=== PATIENT | male | born 1945 | race Caucasian/White ===

== ENCOUNTER 2018-02-28 21:37 | Emergency (ER) | payer MEDICARE, OTHER ==
--- NOTE | 2018-02-28 23:24 | ED Physician Documentation ---
PD HPI HEENT - Stated complaint Stated Complaint: SWOLLEN UVULA/SENT BY DOC - Chief complaint Chief Complaint: Heent - History obtained from History obtained from: Patient - History of Present Illness Timing - onset: How many days ago (2) Timing - duration: Days Timing - details: Gradual onset Pain level now: 0 Location: Throat Associated symptoms: No: Fever, Congestion, Rhinorrhea, Trismus, Unable to swallow, Swollen nodes, Facial swelling, Headache, Cough Similar symptoms before: Has not had sx before Recently seen: Not recently seen - Additional information Additional information: c/o 2 days of gradual onset, gradually progressive painless uvular swelling. no new medications, no h/o similar sx Review of Systems Constitutional: reports: Reviewed and negative Ears: reports: Reviewed and negative Throat: reports: Other (uvular swelling). denies: Dental pain / toothache, Oral lesions / sores, Sore throat, Swollen tonsils, Swallowed foreign body, Reviewed and negative Respiratory: denies: Dyspnea PD PAST MEDICAL HISTORY - Past Medical History Past Medical History: Yes Cardiovascular: Hypertension, High cholesterol Respiratory: Asthma Endocrine/Autoimmune: None GI: GERD, Diverticulitis : Benign prostate hypertrophy, Nocturia, Frequency HEENT: Chronic sinusitis Psych: Depression Musculoskeletal: Osteoarthritis Derm: Other - Past Surgical History Past Surgical History: Yes General: Colonoscopy, Other Ortho: Other Cardiovascular: Coronary stent HEENT: Other - Present Medications Home Medications: Ambulatory Orders Medication Instructions Recorded Confirmed Cholecalciferol (Vitamin D3) 1,000 unit PO DAILY 01/09/14 02/28/18 [Vitamin D3] Magnesium Citrate 500 mg PO DAILY 01/09/14 05/20/14 Niacinamide 500 mg PO BID 01/09/14 02/28/18 Clopidogrel [Plavix] 75 mg ORAL DAILY 05/20/14 02/28/18 Losartan [Cozaar] 50 mg ORAL DAILY 05/20/14 02/28/18 Pantoprazole [Protonix] 40 mg ORAL DAILY 05/20/14 02/28/18 Cetirizine HCl 10 mg PO 02/28/18 Pantothenic Acid 1,000 mg ORAL DAILY 02/28/18 predniSONE [Prednisone] 40 mg PO DAILY 4 Days #8 tablet 02/28/18 - Allergies Allergies/Adverse Reactions: Allergies Allergy/AdvReac Type Severity Reaction Status Date / Time lisinopril Allergy Severe Anaphylaxis Verified 02/28/18 21:48 Penicillins Allergy Severe Anaphylaxis Verified 02/28/18 21:48 Hpseltc-Tos-Kkc Reductase Allergy Severe Nerve Verified 02/28/18 21:48 Inhibitor problems to hands and feet Fish Containing Products Allergy Unknown Verified 02/28/18 21:48 monosodium glutamate Allergy Unknown Verified 02/28/18 21:48 Pork/Porcine Containing Allergy Unknown Verified 02/28/18 21:48 Products - Social History Does the pt smoke?: No Smoking Status: Never smoker Does the pt drink ETOH?: No Does the pt have substance abuse?: No - Immunizations Immunizations are current?: No Immunizations: TDAP >10years/unknown - POLST Patient has POLST: No PD ED PE NORMAL - Vitals Vital signs reviewed: Yes - General General: Alert and oriented X 3, No acute distress, Well developed/nourished - HEENT HEENT: Moist mucous membranes PD ED PE EXPANDED - HEENT HEENT: Other (uvular edema without erythema) Results - Vitals Vitals: Oxygen O2 Source Room air PD MEDICAL DECISION MAKING - ED course Complexity details: considered differential, d/w patient Departure - Departure Disposition: 01 Home, Self Care Clinical Impression: Uvular edema Condition: Good Instructions: ED Uvulitis Follow-Up: Ortega Jolly MD [Primary Care Provider] - (Call in the morning to arrange for next available appointment; they might refer you to a specialist (ENT)) Prescriptions: predniSONE [Prednisone] 40 mg PO DAILY 4 Days #8 tablet Discharge Date/Time: 02/28/18 23:50
[2018-02-28] MEDS ORDERED: DEXAMETHASONE 10 MG/ML VIAL PO STA (23:44)
[2018-02-28 23:50] VITALS: BP 158/94
== END 2018-02-28 23:50 | disposition home or self-care (01) ==
LOC: ED 21:37
DX: R60.1 Generalized edema (principal); I10 Essential (primary) hypertension
CPT/HCPCS: 99283

== ENCOUNTER 2018-06-07 08:00 | Outpatient (CLI) | payer MEDICARE, OTHER | END 2018-06-07 23:59 | disposition home or self-care (01) | LOC: LAB.WCP 08:00 | PROVIDERS: ATTEND Family Medicine | DX: R41.3 Other amnesia (principal) | CPT/HCPCS: 36415; 82607 ==

== ENCOUNTER 2018-06-08 15:49 | Outpatient (CLI) | payer MEDICARE, OTHER ==
[2018-06-08 18:38] LABS: BASOPHILS % (AUTO) 0.3 %; EOSINOPHILS # (AUTO) 0.3 10^3/uL (0.0-0.7); HGB - HEMOGLOBIN 14.2 g/dL (14.0-18.0); LYMPHOCYTES % (AUTO) 32.4 %; MEAN CORPUSCULAR HEMOGLOBIN 30.2 pg (27.0-31.0); MEAN CORPUSCULAR VOLUME 91.6 fL (80.0-94.0); MEAN PLATELET VOLUME 9.7 fL (7.4-11.4); MONOCYTES # (AUTO) 0.5 10^3/uL (0.0-1.0); MONOCYTES % (AUTO) 8.1 %; NEUTROPHILS # (AUTO) 3.4 10^3/uL (1.5-6.6); NEUTROPHILS % (AUTO) 54.2 %; PLT - PLATELET COUNT 190 10^3/uL (130-450); RED BLOOD COUNT 4.69 10^6/uL (4.70-6.10); RED CELL DISTRIBUTION WIDTH 13.7 % (12.0-15.0); WHITE BLOOD COUNT 6.3 x10^3/uL (4.8-10.8)
[2018-06-08 20:35] LABS: ALBUMIN 4.3 g/dL (3.2-5.5); ALBUMIN/GLOBULIN RATIO 1.2 (1.0-2.2); ALKALINE PHOSPHATASE 74 IU/L (42-121); ALT ALANINE AMINOTRANSFERASE 15 IU/L (10-60); AST ASPARTATE AMINOTRANSFERASE 20 IU/L (10-42); BILIRUBIN,TOTAL 0.6 mg/dL (0.2-1.0); BUN - BLOOD UREA NITROGEN 11 mg/dL (6-20); CALCIUM 9.5 mg/dL (8.5-10.3); CARBON DIOXIDE - CO2 25 mmol/L (21-32); CHLORIDE 106 mmol/L (101-111); CHOL/HDL RATIO 6.2 (<5.0); CHOLESTEROL 249 mg/dL; CREATININE 0.9 mg/dL (0.6-1.2); GFR - MDRD 83 (>89); GLUCOSE 96 mg/dL (70-100); HDL CHOLESTEROL 40 mg/dL; LDL CHOLESTEROL,CALCULATED 184 mg/dL; LDL/HDL RATIO 4.6 (<3.6); SODIUM 141 mmol/L (135-145); TOTAL PROTEIN 7.9 g/dL (6.7-8.2); VLDL CHOLESTEROL 25 mg/dL
== END 2018-06-08 23:59 | disposition home or self-care (01) ==
LOC: LAB.WCP 15:49
PROVIDERS: ATTEND Family Medicine
DX: R41.3 Other amnesia (principal); I10 Essential (primary) hypertension; I63.9 Cerebral infarction, unspecified; I25.10 Atherosclerotic heart disease of native coronary artery without angina pectoris
CPT/HCPCS: 36415; 80053; 80061; 83721; 84443; 85025

== ENCOUNTER 2019-08-24 15:19 | Outpatient (CLI) | payer MEDICARE, OTHER ==
[2019-08-24 18:56] LABS: BASOPHILS % (AUTO) 0.6 %; EOSINOPHILS # (AUTO) 0.3 10^3/uL (0.0-0.7); HGB - HEMOGLOBIN 13.8 g/dL (14.0-18.0); LYMPHOCYTES # (AUTO) 1.4 10^3/uL (1.5-3.5); LYMPHOCYTES % (AUTO) 21.5 %; MEAN CORPUSCULAR HEMOGLOBIN 29.2 pg (27.0-31.0); MEAN CORPUSCULAR HGB CONC 32.1 g/dL (32.0-36.0); MEAN CORPUSCULAR VOLUME 90.9 fL (80.0-94.0); MEAN PLATELET VOLUME 11.5 fL (7.4-11.4); MONOCYTES # (AUTO) 0.6 10^3/uL (0.0-1.0); MONOCYTES % (AUTO) 8.7 %; NEUTROPHILS # (AUTO) 4.2 10^3/uL (1.5-6.6); NEUTROPHILS % (AUTO) 64.9 %; PLT - PLATELET COUNT 213 10^3/uL (130-450); RED BLOOD COUNT 4.73 10^6/uL (4.70-6.10); RED CELL DISTRIBUTION WIDTH 12.9 % (12.0-15.0); WHITE BLOOD COUNT 6.4 x10^3/uL (4.8-10.8)
[2019-08-24 19:18] LABS: ALBUMIN 4.3 g/dL (3.2-5.5); ALBUMIN/GLOBULIN RATIO 1.3 (1.0-2.2); ALKALINE PHOSPHATASE 63 IU/L (42-121); ALT ALANINE AMINOTRANSFERASE 21 IU/L (10-60); AST ASPARTATE AMINOTRANSFERASE 25 IU/L (10-42); BILIRUBIN,TOTAL 0.9 mg/dL (0.2-1.0); BUN - BLOOD UREA NITROGEN 16 mg/dL (6-20); CALCIUM 9.4 mg/dL (8.5-10.3); CARBON DIOXIDE - CO2 26 mmol/L (21-32); CHLORIDE 104 mmol/L (101-111); CHOL/HDL RATIO 6.3 (<5.0); CHOLESTEROL 265 mg/dL; CREATININE 0.9 mg/dL (0.6-1.2); GLUCOSE 106 mg/dL (70-100); HDL CHOLESTEROL 42 mg/dL; LDL CHOLESTEROL,CALCULATED 206 mg/dL; LDL/HDL RATIO 4.9 (<3.6); SODIUM 139 mmol/L (135-145); TOTAL PROTEIN 7.6 g/dL (6.7-8.2); VLDL CHOLESTEROL 17 mg/dL
[2019-08-24 19:20] LABS: PSA FREE 0.56 ng/mL (0.16-2.81)
[2019-08-24 19:21] LABS: PSA TOTAL 3.95 ng/mL (0.000-2.000)
== END 2019-08-24 23:59 | disposition home or self-care (01) ==
LOC: LAB.WCP 15:19
PROVIDERS: ATTEND Family Medicine
DX: E78.5 Hyperlipidemia, unspecified (principal); I25.10 Atherosclerotic heart disease of native coronary artery without angina pectoris; I10 Essential (primary) hypertension; N40.2 Nodular prostate without lower urinary tract symptoms; G62.9 Polyneuropathy, unspecified; D47.2 Monoclonal gammopathy
CPT/HCPCS: 36415; 80053; 80061; 81599; 82607; 83721; 84153; 84154; 84155; 84165; 84443; 85025; 86334

== ENCOUNTER 2021-12-10 08:00 | Outpatient (CLI) | payer MEDICARE, OTHER ==
--- NOTE | 2021-12-10 19:28 | XRAY Report ---
PROCEDURE: Chest 2 View X-Ray INDICATIONS: CHEST WALL PAIN TECHNIQUE: 2 view(s) of the chest. COMPARISON: None. FINDINGS: Surgical changes and devices: None. Lungs and pleura: No pleural effusions or pneumothorax. Lungs are clear. Mediastinum: Mediastinal contours are normal. Heart size is normal. Bones and chest wall: No suspicious bony abnormalities. Soft tissues appear unremarkable. IMPRESSION: No acute cardiopulmonary pathology. Reviewed by: Asad Jaime MD on 12/10/2021 7:26 PM PDT Approved by: Asad Jaime MD on 12/10/2021 7:26 PM PDT Station ID: [id number]
[2021-12-10 20:40] LABS: BASOPHILS % (AUTO) 0.5 %; EOSINOPHILS # (AUTO) 0.2 10^3/uL (0.0-0.7); EOSINOPHILS % (AUTO) 3.4 %; HCT - HEMATOCRIT 44.4 % (42.0-52.0); LYMPHOCYTES # (AUTO) 1.8 10^3/uL (1.5-3.5); LYMPHOCYTES % (AUTO) 28.3 %; MEAN CORPUSCULAR HEMOGLOBIN 29.8 pg (27.0-31.0); MEAN CORPUSCULAR HGB CONC 33.8 g/dL (32.0-36.0); MEAN CORPUSCULAR VOLUME 88.3 fL (80.0-94.0); MONOCYTES # (AUTO) 0.5 10^3/uL (0.0-1.0); MONOCYTES % (AUTO) 8.1 %; NEUTROPHILS # (AUTO) 3.7 10^3/uL (1.5-6.6); NEUTROPHILS % (AUTO) 59.5 %; PLT - PLATELET COUNT 228 10^3/uL (130-450); RED BLOOD COUNT 5.03 10^6/uL (4.70-6.10); RED CELL DISTRIBUTION WIDTH 12.9 % (12.0-15.0); WHITE BLOOD COUNT 6.2 x10^3/uL (4.8-10.8)
[2021-12-10 20:41] LABS: ALBUMIN 4.4 g/dL (3.2-5.5); ALBUMIN/GLOBULIN RATIO 1.3 (1.0-2.2); BILIRUBIN,TOTAL 0.5 mg/dL (0.2-1.0); CALCIUM 9.8 mg/dL (8.5-10.3); CREATININE 0.9 mg/dL (0.6-1.2); TOTAL PROTEIN 7.9 g/dL (6.7-8.2)
== END 2021-12-10 23:59 | disposition home or self-care (01) ==
LOC: LAB.N 08:00
PROVIDERS: ATTEND Registered Nurse
DX: R07.89 Other chest pain (principal); R10.12 Left upper quadrant pain
CPT/HCPCS: 36415; 80053; 83690; 85025

== ENCOUNTER 2022-01-28 13:49 | Outpatient (CLI) | payer MEDICARE, OTHER ==
[2022-01-28] MEDS ORDERED: iohexoL-300 100 ML VIAL ONE (14:06)
[2022-01-28] MEDS ORDERED: DIATRIZOATE MEGLU/DIATRIZO SOD 30 ML BOTTLE PO ONE ×2 (14:06→18:12)
[2022-01-28 14:15] LABS: CREATININE 1.1 mg/dL (0.6-1.2)
[2022-01-28] MEDS ORDERED: iohexoL-300 100 ML VIAL IVP ONE (18:12)
--- NOTE | 2022-01-28 21:39 | CT Report ---
PROCEDURE: ABDOMEN/PELVIS W INDICATIONS: LEFT UPPER QUAD ABD PAIN CONTRAST: 100ml Omnipaque 300 TECHNIQUE: After the administration of intravenous contrast, 5 mm thick sections acquired from the diaphragms to the symphysis. 5 mm thick coronal and sagittal reformats were acquired. For radiation dose reducti on, the following was used: automated exposure control, adjustment of mA and/or kV according to christiane ent size. COMPARISON: None. FINDINGS: Image quality: Excellent. ABDOMEN: Lung bases: Lung bases are clear. Heart size is normal. Solid organs: Liver and spleen are normal in size and enhancement. Gallbladder normal Biliary syst em is non dilated. Pancreas enhances normally. No adrenal nodules. Kidneys demonstrate normal size and enhancement, without hydronephrosis. Peritoneum and bowel: Bowel loops demonstrate normal wall thickness and caliber. No free fluid or a ir. Nodes and vessels: No retroperitoneal or mesenteric adenopathy by size criteria. Aorta and inferior vena cava are normal in size. Miscellaneous: No ventral hernias. PELVIS: Genitourinary: Bladder wall thickness is normal. Moderate prostatomegaly. Miscellaneous: No inguinal hernias or adenopathy. Bones: No suspicious bony lesions. No vertebral body compression fractures. IMPRESSION: No urinary tract calculus or findings of obstructive uropathy. Moderate prostatomegaly. Extensive sigmoid diverticulosis without findings of diverticulitis. Reviewed by: Adebayo Fajardo MD on 01/28/2022 9:38 PM PST Approved by: Adebayo Fajardo MD on 01/28/2022 9:38 PM PST Station ID: [id number]
== END 2022-01-28 13:50 | disposition home or self-care (01) ==
LOC: LAB 13:49
PROVIDERS: ATTEND Family Medicine
DX: R10.12 Left upper quadrant pain (principal); N40.0 Benign prostatic hyperplasia without lower urinary tract symptoms; K57.30 Diverticulosis of large intestine without perforation or abscess without bleeding
CPT/HCPCS: 36415; 74177; 82565; Q9963; Q9967

== ENCOUNTER 2022-07-11 08:13 | Emergency (ER) | payer MEDICARE, OTHER ==
[2022-07-11 09:05] LABS: BASOPHILS % (AUTO) 0.4 %; EOSINOPHILS # (AUTO) 0.2 10^3/uL (0.0-0.7); EOSINOPHILS % (AUTO) 2.7 %; HCT - HEMATOCRIT 42.6 % (42.0-52.0); LYMPHOCYTES # (AUTO) 2.4 10^3/uL (1.5-3.5); LYMPHOCYTES % (AUTO) 28.9 %; MEAN CORPUSCULAR HEMOGLOBIN 29.2 pg (27.0-31.0); MEAN CORPUSCULAR HGB CONC 32.9 g/dL (32.0-36.0); MEAN CORPUSCULAR VOLUME 88.8 fL (80.0-94.0); MEAN PLATELET VOLUME 10.7 fL (7.4-11.4); MONOCYTES # (AUTO) 0.7 10^3/uL (0.0-1.0); MONOCYTES % (AUTO) 8.7 %; NEUTROPHILS # (AUTO) 4.8 10^3/uL (1.5-6.6); NEUTROPHILS % (AUTO) 59.1 %; PLT - PLATELET COUNT 214 10^3/uL (130-450); RED CELL DISTRIBUTION WIDTH 13.2 % (12.0-15.0); WHITE BLOOD COUNT 8.2 x10^3/uL (4.8-10.8)
[2022-07-11 09:15] LABS: ALBUMIN 4.1 g/dL (3.2-5.5); ALBUMIN/GLOBULIN RATIO 1.2 (1.0-2.2); BILIRUBIN,TOTAL 0.5 mg/dL (0.2-1.0); CALCIUM 9.2 mg/dL (8.5-10.3); POTASSIUM 3.8 mmol/L (3.5-5.0); TOTAL PROTEIN 7.5 g/dL (6.7-8.2)
--- NOTE | 2022-07-11 09:27 | XRAY Report ---
PROCEDURE: Chest 1 View X-Ray INDICATIONS: CP TECHNIQUE: One view of the chest was acquired. COMPARISON: 12/10/2021 FINDINGS: Surgical changes and devices: None. Lungs and pleura: No pleural effusions or pneumothorax. Lungs are clear. Mediastinum: The aorta is prominent and tortuous. The cardiac contours are within normal limits. Bones and chest wall: No suspicious bony lesions. Overlying soft tissues appear unremarkable. IMPRESSION: Portable chest within normal limits for age. Reviewed by: Petr Mcgregor MD on 07/11/2022 8:26 AM [facility] Approved by: Petr Mcgregor MD on 07/11/2022 8:26 AM [facility] Station ID: [id number]
--- NOTE | 2022-07-11 09:28 | ED Physician Documentation ---
History of Present Illness - Stated complaint Stated Complaint: L ARM PX/ALLERGIC REACTION - Chief complaint Chief Complaint: General - History obtained from History obtained from: Patient - Additonal information Additional information: Is a 76-year-old with a history of coronary artery disease presenting for evaluation of discomfort in his chest radiating to his left arm that he has been feeling since yesterday. Patient states that he started feeling this pain last night around 8:00 when he went out to feed his animals.He has continued to feel the discomfort throughout the night and into this morning. He states it is worse when he is moving around and feels better at rest. He again describes it as a discomfort and achiness and his current pain is 1 out of 10.Denies other recent episodes of chest pain. He denies shortness of breath. He attributes this to possibly being related to food allergies as he reports having a number of allergies and has reported similar symptoms in this past that he had also attributed to allergic reactions. He had a stent placed in 2004 at [facility] in [place]. He does not currently see a software quality specialist.He was seeing Dr. Jolly as his PCP. He is on an antihypertensive medication but is unsure of the name and has been out of it for the past 3 weeks. He states an intolerance to statins. He does take aspirin daily and already took 650 of aspirin today. Patient states he took a second Full strength dose because the pain was coming back. He denies alcohol or substance abuse. Review of Systems Constitutional: denies: Fever Cardiac: reports: Chest pain / pressure Respiratory: denies: Dyspnea GI: denies: Abdominal Pain, Vomiting : denies: Dysuria Musculoskeletal: denies: Back pain Neurologic: denies: Headache PD PAST MEDICAL HISTORY - Past Medical History Cardiovascular: Hypertension, High cholesterol Respiratory: Asthma Endocrine/Autoimmune: None GI: GERD, Diverticulitis : Benign prostate hypertrophy, Nocturia, Frequency HEENT: Chronic sinusitis Psych: Depression Musculoskeletal: Osteoarthritis Derm: Other - Past Surgical History Past Surgical History: Yes General: Colonoscopy, Other Ortho: Other Cardiovascular: Coronary stent HEENT: Other - Present Medications Home Medications: Ambulatory Orders Medication Instructions Recorded Confirmed Cholecalciferol (Vitamin D3) 1,000 unit PO DAILY 01/09/14 02/28/18 [Vitamin D3] Magnesium Citrate 500 mg PO DAILY 10/29/14 03/09/15 Niacinamide 500 mg PO BID 01/09/14 02/28/18 Clopidogrel [Plavix] 75 mg ORAL DAILY 05/20/14 02/28/18 Losartan [Cozaar] 50 mg ORAL DAILY 05/20/14 02/28/18 Pantoprazole [Protonix] 40 mg ORAL DAILY 05/20/14 02/28/18 Cetirizine HCl 10 mg PO 02/28/18 Pantothenic Acid 1,000 mg ORAL DAILY 02/28/18 predniSONE [Prednisone] 40 mg PO DAILY 4 Days #8 tablet 02/28/18 - Allergies Allergies/Adverse Reactions: Allergies Allergy/AdvReac Type Severity Reaction Status Date / Time lisinopril Allergy Severe Anaphylaxis Verified 07/11/22 08:24 Penicillins Allergy Severe Anaphylaxis Verified 07/11/22 08:24 Nnbwtnj-OWO-OlU Reductase Allergy Severe Nerve Verified 07/11/22 08:24 Inhibitor problems [Blkkuze-Jnp-Kzs Reductase to hands Inhibitor] and feet Fish Containing Products Allergy Unknown Verified 07/11/22 08:24 monosodium glutamate Allergy Unknown Verified 07/11/22 08:24 Pork/Porcine Containing Allergy Unknown Verified 07/11/22 08:24 Products - Social History Does the pt smoke?: No Smoking Status: Never smoker Does the pt drink ETOH?: No Does the pt have substance abuse?: No - Immunizations Immunizations are current?: No Immunizations: TDAP >10years/unknown - POLST Patient has POLST: No PD ED PE NORMAL - General General: Alert and oriented X 3, No acute distress, Well developed/nourished - HEENT HEENT: Atraumatic - Neck Neck: Supple, no meningeal sign - Cardiac Cardiac: RRR, No murmur - Respiratory Respiratory: No respiratory distress, Clear bilaterally - Abdomen Abdomen: Soft, Non tender, Non distended - Derm Derm: Warm and dry - Extremities Extremities: No edema, No calf tenderness / cord - Neuro Neuro: Normal speech Results - Vitals Vitals: Vital Signs - 24 hr 07/11/22 07/11/22 07/11/22 08:18 08:35 08:54 Temperature 36.8 C Heart Rate 86 91 86 Respiratory 17 20 18 Rate Blood Pressure 207/95 H 197/109 H O2 Saturation 97 98 97 07/11/22 07/11/22 07/11/22 09:40 10:04 10:34 Temperature Heart Rate 69 65 63 Respiratory 18 18 18 Rate Blood Pressure 163/98 H 161/93 H 152/101 H O2 Saturation 96 96 97 07/11/22 07/11/22 07/11/22 11:00 11:30 12:03 Temperature Heart Rate 52 L 56 L 69 Respiratory 18 18 18 Rate Blood Pressure 162/85 H 172/121 H O2 Saturation 98 98 97 07/11/22 07/11/22 07/11/22 12:32 13:05 14:03 Temperature Heart Rate 69 77 81 Respiratory 18 20 18 Rate Blood Pressure 177/103 H 171/94 H 146/93 H O2 Saturation 98 97 96 Oxygen O2 Source Room air - EKG (time done) 0829 EKG releavant findings:: EKG personally interpreted by author of this note. Relevant findings are: Rate 89, normal sinus rhythm, no STEMI, QTc 482, Rate: Rate (enter#) (89) Rhythm: NSR Intervals: No: Prolonged QT Ischemia: No: ST elevation c/w ischemia - Labs Labs: Laboratory Tests 07/11/22 07/11/22 07/11/22 08:47 08:47 08:47 WBC 8.2 RBC 4.80 Hgb 14.0 Hct 42.6 MCV 88.8 MCH 29.2 MCHC 32.9 RDW 13.2 Plt Count 214 MPV 10.7 Neut # (Auto) 4.8 Lymph # (Auto) 2.4 [place] # (Auto) 0.7 Eos # (Auto) 0.2 Baso # (Auto) 0.0 Absolute Nucleated RBC 0.00 Nucleated RBC % 0.0 Sodium 140 Potassium 3.8 Chloride 101 Carbon Dioxide 26 Anion Gap 13.0 BUN 18 Creatinine 1.0 Estimated GFR (MDRD) 73 L Glucose 109 H Calcium 9.2 Total Bilirubin 0.5 AST 20 ALT 17 Alkaline Phosphatase 66 Troponin I High Sens 319.5 H* Total Protein 7.5 Albumin 4.1 Globulin 3.4 Albumin/Globulin Ratio 1.2 SARS-CoV-2 (PCR) 07/11/22 10:36 WBC RBC Hgb Hct MCV MCH MCHC RDW Plt Count MPV Neut # (Auto) Lymph # (Auto) [place] # (Auto) Eos # (Auto) Baso # (Auto) Absolute Nucleated RBC Nucleated RBC % Sodium Potassium Chloride Carbon Dioxide Anion Gap BUN Creatinine Estimated GFR (MDRD) Glucose Calcium Total Bilirubin AST ALT Alkaline Phosphatase Troponin I High Sens Total Protein Albumin Globulin Albumin/Globulin Ratio SARS-CoV-2 (PCR) NOT DETECTED PD Medical Decision Making - ED course Complexity details: reviewed results, re-evaluated patient, d/w patient ED course: Patient presenting for evaluation of chest pain that has been present since yesterday. He has a history of coronary artery disease.He is hypertensive but his blood pressure did improve prior to receiving any medications. His EKG is reviewed. His labs are also reviewed with an elevated high-sensitivity troponin in the 300 range. His chest x-ray which I reviewed is negative for signs of cardiomegaly or effusion. He does not have any pain while resting here - Dissection and PE unlikely Based on symptoms. However his symptoms and elevated troponin are concerning for an ischemic event. Patient is agreeable to plan for transfer to facility with cardiology capabilities. He was started on full dose Lovenox and a beta-anselmo. He has an intolerance to statins. He took aspirin today. Patient has been seen at [facility] in [place] previously for his stent in 2004. Discussed the case with her on-call software quality specialist who will consult on the patient. They were able to accept the patient in transfer and he remained pain-free here. 0950 - Troponin is elevated. He is resting comfortably with headphones in and states that he is pain-free. Reviewed his results and recommend transfer to facility with cardiology capable of these for NSTEMI. Patient is agreeable to this. He reports allergy to statins in the past. He is unsure which blood pressure medication he is taking at this time. Is agreeable to receiving anticoagulation with Lovenox as well as beta-anselmo. 1347 - D/W Dr. Jaime (Cardiology [facility]). Agrees to see the patient in consultation. Request admission to medicine. 1406 - Discussed with Dr. Froilan Paul (hospitalist at [facility]). Agrees to accept the patient for transfer. - Critical Care Time(min): 32 Time Includes: Direct patient care, Review records, Reassess patient, Medical consult Departure - Departure Disposition: 02 Transfer Acute Care Hosp Clinical Impression: NSTEMI (non-ST elevated myocardial infarction) Condition: Stable Discharge Date/Time: 07/11/22 15:36
[2022-07-11] MEDS ORDERED: ONDANSETRON 4 MG/2 ML VIAL IVP PRN (09:56)
[2022-07-11] MEDS ORDERED: ACETAMINOPHEN 500 MG TABLET PO PRN (09:56)
[2022-07-11] MEDS ORDERED: ENOXAPARIN 100 MG/ML SYRINGE SUBQ SCH (10:00)
[2022-07-11 14:04] VITALS: BP 146/93
[2022-07-11] MEDS ORDERED: METOPROLOL TARTRATE 25 MG TABLET PO SCH (21:00)
[2022-07-12] MEDS ORDERED: PANTOPRAZOLE 40 MG TABLET PO SCH (07:00)
[2022-07-12] MEDS ORDERED: ASPIRIN CHEW 81 MG TABLET PO SCH (09:00)
== END 2022-07-11 15:36 | disposition short-term general hospital (02) ==
LOC: ED 08:13
DX: I21.4 Non-ST elevation (NSTEMI) myocardial infarction (principal); Z20.822 Contact with and (suspected) exposure to COVID-19
CPT/HCPCS: 36415; 71045; 80053; 84484; 85025; 87635; 93005; 96372; 99285; 99291; J1650

== ENCOUNTER 2022-07-11 15:04 | Outpatient (CLI) | payer MEDICARE, OTHER | END 2022-07-11 23:59 | disposition short-term general hospital (02) | LOC: EMS 15:04 | PROVIDERS: ATTEND Emergency Medicine | DX: I21.4 Non-ST elevation (NSTEMI) myocardial infarction (principal) | CPT/HCPCS: A0425; A0428 ==

== ENCOUNTER 2022-10-13 12:16 | Outpatient (CLI) | payer MEDICARE, OTHER ==
[2022-10-13 17:51] LABS: BASOPHILS % (AUTO) 0.3 %; EOSINOPHILS # (AUTO) 0.4 10^3/uL (0.0-0.7); HCT - HEMATOCRIT 39.1 % (42.0-52.0); LYMPHOCYTES # (AUTO) 1.8 10^3/uL (1.5-3.5); LYMPHOCYTES % (AUTO) 24.8 %; MEAN CORPUSCULAR HEMOGLOBIN 26.7 pg (27.0-31.0); MEAN CORPUSCULAR HGB CONC 30.7 g/dL (32.0-36.0); MEAN CORPUSCULAR VOLUME 87.1 fL (80.0-94.0); MEAN PLATELET VOLUME 10.9 fL (7.4-11.4); MONOCYTES # (AUTO) 0.8 10^3/uL (0.0-1.0); MONOCYTES % (AUTO) 11.3 %; NEUTROPHILS # (AUTO) 4.3 10^3/uL (1.5-6.6); NEUTROPHILS % (AUTO) 58.3 %; PLT - PLATELET COUNT 235 10^3/uL (130-450); RED BLOOD COUNT 4.49 10^6/uL (4.70-6.10); RED CELL DISTRIBUTION WIDTH 14.5 % (12.0-15.0); WHITE BLOOD COUNT 7.4 x10^3/uL (4.8-10.8)
[2022-10-13 18:14] LABS: ALBUMIN 4.1 g/dL (3.2-5.5); ALBUMIN/GLOBULIN RATIO 1.2 (1.0-2.2); ALKALINE PHOSPHATASE 71 IU/L (42-121); ALT ALANINE AMINOTRANSFERASE 14 IU/L (10-60); AST ASPARTATE AMINOTRANSFERASE 14 IU/L (10-42); BILIRUBIN,TOTAL 0.3 mg/dL (0.2-1.0); BUN - BLOOD UREA NITROGEN 16 mg/dL (6-20); CALCIUM 9.8 mg/dL (8.5-10.3); CARBON DIOXIDE - CO2 31 mmol/L (21-32); CHLORIDE 102 mmol/L (101-111); CHOL/HDL RATIO 3.8 (<5.0); CHOLESTEROL 160 mg/dL; GFR - MDRD 73 (>89); GLUCOSE 113 mg/dL (74-104); HDL CHOLESTEROL 42 mg/dL; LDL CHOLESTEROL,CALCULATED 90 mg/dL; LDL/HDL RATIO 2.1 (<3.6); POTASSIUM 4.2 mmol/L (3.5-4.5); SODIUM 137 mmol/L (135-145); TOTAL PROTEIN 7.6 g/dL (6.4-8.9); TRIGLYCERIDES 138 mg/dL (48-352); VLDL CHOLESTEROL 28 mg/dL
[2022-10-13 20:24] LABS: ESTIMATED AVERAGE GLUCOSE 126 mg/dL (70-100)
[2022-10-15 18:08] LABS: A/G RATIO 0.9 (0.7-1.7); ALBUMIN 3.4 g/dL (2.9-4.4); ALPHA-1-GLOBULIN 0.3 g/dL (0.0-0.4); ALPHA-2-GLOBULIN 0.9 g/dL (0.4-1.0); BETA GLOBULIN 1.1 g/dL (0.7-1.3); GAMMA GLOBULIN 1.4 g/dL (0.4-1.8); GLOBULIN, TOTAL 3.7 g/dL (2.2-3.9); PROTEIN TOTAL 7.1 g/dL (6.0-8.5)
== END 2022-10-13 12:17 | disposition home or self-care (01) ==
LOC: LAB.N 12:16
PROVIDERS: ATTEND Nurse Practitioner
DX: I25.10 Atherosclerotic heart disease of native coronary artery without angina pectoris (principal); E78.5 Hyperlipidemia, unspecified; E53.8 Deficiency of other specified B group vitamins; R73.9 Hyperglycemia, unspecified; D47.2 Monoclonal gammopathy; R53.83 Other fatigue
CPT/HCPCS: 36415; 80053; 80061; 82607; 83036; 83721; 84155; 84165; 84439; 84443; 85025